=== PATIENT | female | born 1985 | race Caucasian/White ===

== ENCOUNTER → 2016-09-28 | Outpatient (REF) | payer BC ==
[2016-09-28 13:05] LABS: ALBUMIN 4.5 GM/DL (3.2-5.2); ALBUMIN/GLOBULIN RATIO 1.41 (1.00-1.93); ALKALINE PHOSPHATASE 67 U/L (45-117); ALT/SGPT 20 U/L (12-78); ANION GAP 8 MEQ/L (8-16); AST/SGOT 16 U/L (15-37); BILIRUBIN,TOTAL 0.4 MG/DL (0.2-1.0); BLOOD UREA NITROGEN 9 MG/DL (7-18); CALCIUM LEVEL 9.5 MG/DL (8.5-10.1); CARBON DIOXIDE LEVEL 29 MEQ/L (21-32); CHLORIDE LEVEL 103 MEQ/L (98-107); CHOLESTEROL LEVEL 205 MG/DL (<200); CREATININE FOR GFR 0.74 MG/DL (0.55-1.02); GLOMERULAR FILTRATION RATE > 60.0 (>60); GLUCOSE, FASTING 82 MG/DL (70-105); POTASSIUM SERUM 4.7 MEQ/L (3.5-5.1); SODIUM LEVEL 140 MEQ/L (136-145); TOTAL PROTEIN 7.7 GM/DL (6.4-8.2); TRIGLYCERIDES LEVEL 117 MG/DL (<150)
[2016-09-28 13:19] LABS: MEAN CORPUSCULAR HEMOGLOBIN 29.4 pg (27.0-33.0); MEAN CORPUSCULAR HGB CONC 32.7 g/dl (32.0-36.5); RED CELL DISTRIBUTION WIDTH 12.1 % (11.5-14.5); WHITE BLOOD COUNT 9.9 K/mm3 (4.0-10.0)
== END ==
LOC: M SFHCLERA 09:15
PROVIDERS: ATTEND Physician Assistant
DX: M54.6 Pain in thoracic spine (principal); Z13.220 Encounter for screening for lipoid disorders; F34.1 Dysthymic disorder

== ENCOUNTER → 2016-12-27 | Outpatient (REF) | payer BC | LOC: M SFHCLERA 11:33 | PROVIDERS: ATTEND Physician Assistant | DX: J02.9 Acute pharyngitis, unspecified (principal) ==

== ENCOUNTER → 2017-01-16 | Outpatient (REF) | payer BC | LOC: M SFHCLERA 09:49 | PROVIDERS: ATTEND Nurse Practitioner Family | DX: R30.0 Dysuria (principal) ==

== ENCOUNTER → 2017-07-09 | Outpatient (CLI) | payer BC ==
[2017-07-09 13:58] LABS: BASO % 0.3 % (0.0-1.0); EOS # 0.2 10^3/uL (0.0-0.50); EOS % 1.4 % (0.0-3.0); HEMATOCRIT 43.8 % (36.0-47.0); HEMOGLOBIN 14.5 g/dl (12.0-16.0); IMMATURE GRANULOCYTE # 0.1 10^3/uL (0-0); IMMATURE GRANULOCYTE % 0.6 % (0-0); LYMPH # 2.3 10^3/uL (1.5-4.5); LYMPH % 17.3 % (24.0-44.0); MEAN CORPUSCULAR HEMOGLOBIN 29.8 pg (27.0-33.0); MEAN CORPUSCULAR HGB CONC 33.1 g/dl (32.0-36.5); MEAN CORPUSCULAR VOLUME 90.1 fl (80.0-96.0); MONO # 0.9 10^3/uL (0.0-0.8); MONO % 6.7 % (0.0-5.0); NEUTROPHILS # 9.9 10^3/uL (1.8-7.7); NEUTROPHILS % 73.7 % (36.0-66.0); PLATELET COUNT, AUTOMATED 310 10^3/uL (150-450); RED BLOOD COUNT 4.86 10^6/uL (4.00-5.40); RED CELL DISTRIBUTION WIDTH 12.6 % (11.5-14.5); WHITE BLOOD COUNT 13.4 10^3/uL (4.0-10.0)
[2017-07-09 14:33] LABS: RUBELLA IgG QUALITATIVE IMMUNE (IMMUNE)
[2017-07-09 14:34] LABS: HBsAg Prenatal NEGATIVE (NEGATIVE)
[2017-07-09 15:01] LABS: HEPATITIS C VIRUS ABY INDEX 0.1 INDEX (<0.8)
[2017-07-09 15:02] LABS: HIV 1&2 SCREEN CENTAUR NEGATIVE (NEGATIVE)
[2017-07-09 15:35] LABS: CHLAMYDIA DNA AMPLIFICATION NEGATIVE (NEGATIVE); GC DNA AMPLIFICATION NEGATIVE (NEGATIVE)
[2017-07-11 00:07] LABS: T PALLIDUM ANTIBODIES Negative (Negative)
== END ==
LOC: M SMT 10:01
DX: Z34.81 Encounter for supervision of other normal pregnancy, first trimester (principal); Z3A.09 9 weeks gestation of pregnancy
CPT/HCPCS: 86762

== ENCOUNTER → 2017-08-01 | Outpatient (CLI) | payer BC ==
[2017-08-03 00:06] LABS: T PALLIDUM ANTIBODIES Negative (Negative)
== END ==
LOC: M SMT 09:32
DX: Z34.81 Encounter for supervision of other normal pregnancy, first trimester (principal); Z3A.00 Weeks of gestation of pregnancy not specified
CPT/HCPCS: 36415

== ENCOUNTER → 2017-09-07 | Outpatient (CLI) | payer BC | LOC: M SMT 11:02 | DX: Z31.438 Encounter for other genetic testing of female for procreative management (principal) | CPT/HCPCS: 36415 ==

== ENCOUNTER → 2017-09-07 | Outpatient (CLI) | payer BC | LOC: M RAD 10:05 | DX: Z34.82 Encounter for supervision of other normal pregnancy, second trimester (principal) ==

== ENCOUNTER → 2017-09-24 | Outpatient (CLI) | payer BC | LOC: M RAD 17:36 | DX: Z34.82 Encounter for supervision of other normal pregnancy, second trimester (principal); Z3A.21 21 weeks gestation of pregnancy ==

== ENCOUNTER → 2017-10-15 | Outpatient (CLI) | payer BC ==
[2017-10-15 13:44] LABS: HEMATOCRIT 39.8 % (36.0-47.0); HEMOGLOBIN 13.3 g/dl (12.0-15.5); MEAN CORPUSCULAR HEMOGLOBIN 30.6 pg (27.0-33.0); MEAN CORPUSCULAR HGB CONC 33.4 g/dl (32.0-36.5); MEAN CORPUSCULAR VOLUME 91.7 fl (80.0-96.0); PLATELET COUNT, AUTOMATED 207 10^3/uL (150-450); RED BLOOD COUNT 4.34 10^6/uL (4.00-5.40); RED CELL DISTRIBUTION WIDTH 13.1 % (11.5-14.5); WHITE BLOOD COUNT 14.1 10^3/uL (4.0-10.0)
[2017-10-15 14:30] LABS: GLUCOSE CHALLENGE TEST 1 HOUR 114 MG/DL (LESS THAN 140)
== END ==
LOC: M SMT 08:30
DX: Z34.82 Encounter for supervision of other normal pregnancy, second trimester (principal); Z3A.00 Weeks of gestation of pregnancy not specified

== ENCOUNTER → 2018-01-08 | Outpatient (REF) | payer BC | LOC: M LAB REF 16:57 | DX: Z36.85 Encounter for antenatal screening for Streptococcus B (principal); Z3A.00 Weeks of gestation of pregnancy not specified | CPT/HCPCS: 87081 ==

== ENCOUNTER 2018-01-28 01:50 | Inpatient (IN) | payer BC ==
[2018-01-28] MEDS ORDERED: OXYTOCIN 30 UNITS IN 0.9% NaCl 500ML IV BAG (J2590) As Ordered ×3 (02:39→08:54)
[2018-01-28 02:45] LABS: HEMATOCRIT 43.1 % (36.0-47.0); HEMOGLOBIN 14.7 g/dl (12.0-15.5); MEAN CORPUSCULAR HEMOGLOBIN 31.1 pg (27.0-33.0); MEAN CORPUSCULAR HGB CONC 34.1 g/dl (32.0-36.5); MEAN CORPUSCULAR VOLUME 91.3 fl (80.0-96.0); PLATELET COUNT, AUTOMATED 158 10^3/uL (150-450); RED BLOOD COUNT 4.72 10^6/uL (4.00-5.40); RED CELL DISTRIBUTION WIDTH 13.7 % (11.5-14.5); WHITE BLOOD COUNT 12.8 10^3/uL (4.0-10.0)
[2018-01-28] MEDS ORDERED: FENTANYL 2MCG/ML ROPIVACAINE 0.2% IN 0.9% NACL 200ML IVBAG As Ordered (03:38)
[2018-01-28] MEDS ORDERED: ONDANSETRON 4MG/2ML VIAL (J2405) IV ×4 (03:58→09:15)
[2018-01-28] MEDS ORDERED: REFRIGERATOR IV KEYS XX (03:58)
[2018-01-28] MEDS ORDERED: FENTANYL/ROPIVACAINE/NACL BAG 200 ML EPIDURAL (03:58)
[2018-01-28] MEDS ORDERED: NALOXONE INJ 0.4 MG/1 ML VIAL (J2310) IV ×3 (03:58→08:31)
[2018-01-28] MEDS ORDERED: EPIDURAL/PCA KEYS XX (03:58)
[2018-01-28] MEDS ORDERED: ePHEDrine SULFATE 25 MG/5 ML(5MG/ML) SYRINGE IV (03:58)
[2018-01-28] MEDS ORDERED: EPIDURAL COMMENT XX (03:58)
[2018-01-28] MEDS ORDERED: diphenhydrAMINE INJ 50MG/ML VIAL (J1200) IV (03:58)
[2018-01-28] MEDS ORDERED: LACTATED RINGER'S 1000 ML IV (03:58)
[2018-01-28] MEDS: LR 1,000 ML IV ×4 (04:32→20:02)
[2018-01-28] MEDS ORDERED: BICITRA 30ML SOLN UDC As Ordered (07:48)
[2018-01-28] MEDS ORDERED: ceFAZolin 2 GM/D5W 50 ML IV BAG (J0690 PER 500MG) As Ordered (07:48)
[2018-01-28] MEDS: BICITRA 30ML SOLN UDC PO (07:54)
[2018-01-28] MEDS ORDERED: dexameTHASONE 4 MG/ML 1ML VIAL (J1100) As Ordered (08:06)
[2018-01-28] MEDS ORDERED: KETOROLAC 60 MG/2 ML VIAL (J1885) As Ordered (08:06)
[2018-01-28] MEDS ORDERED: MORPHINE PRES-FREE INJ 10 MG/10 ML VIAL (J2274) As Ordered (08:06)
[2018-01-28] MEDS ORDERED: ONDANSETRON 4MG/2ML VIAL (J2405) As Ordered (08:06)
[2018-01-28] MEDS ORDERED: OXYTOCIN INJ 10 UNITS/ML VIAL (J2590) As Ordered (08:06)
[2018-01-28 08:26] LABS: CORD GAS ABE A -3.8; CORD GAS HCO3 A 25.6 MEQ/L; CORD GAS O2 SAT A 32.4 %; CORD GAS PCO2 A 63.9 mmHg; CORD GAS PO2 A 19.5 mmHg; CORD GAS SBC A 19.6 MEQ/L; CORD GAS TCO2 A 27.5 MEQ/L
[2018-01-28 08:27] LABS: CORD GAS ABE V -4.9; CORD GAS HCO3 V 22.6 MEQ/L; CORD GAS O2 SAT V 62.4 %; CORD GAS PCO2 V 50.2 mmHg; CORD GAS PH V 7.271 UNITS; CORD GAS SBC V 19.6 MEQ/L; CORD GAS TCO2 V 24.1 MEQ/L
[2018-01-28] MEDS ORDERED: NALBUPHINE HCL 10 MG/ML AMP (J2300) IV (08:31)
[2018-01-28] MEDS ORDERED: METOCLOPRAMIDE INJ 10MG/2ML VIAL (J2765) IV (08:31)
[2018-01-28] MEDS ORDERED: ePHEDrine SULFATE 25 MG/5 ML(5MG/ML) SYRINGE As Ordered (08:32)
[2018-01-28] MEDS ORDERED: LIDOCAINE PRES-FREE 2% 10ML AMP As Ordered ×2 (08:35)
[2018-01-28] MEDS ORDERED: MEASLES,MUMPS,RUBELLA VACCINE INJ (MMR-II) (90707) SC (08:45)
[2018-01-28] MEDS ORDERED: DOCUSATE SODIUM 100 MG CAP PO (08:45)
[2018-01-28] MEDS ORDERED: RHOGAM 300 MCG (1500 IU) INJ (J2790) IM (08:45)
[2018-01-28] MEDS: PRENATAL VITAMINS CHEWABLE TABLET PO (09:00)
[2018-01-28] MEDS ORDERED: NORCO, ANEXSIA 5/325MG TABLET (HYDROcodone/ACETAMINOPHEN) PO ×2 (09:15→12:15)
[2018-01-28] MEDS ORDERED: fentaNYL 100 MCG/2 ML INJECTION (J3010) As Ordered (09:17)
[2018-01-28] MEDS: fentaNYL 100 MCG/2 ML INJECTION (J3010) IV ×4 (09:19→09:41)
[2018-01-28 11:57] LABS: BEDSIDE GLUCOSE 112 MG/DL (70-105)
[2018-01-28] MEDS: KETOROLAC 30 MG/ML VIAL (J1885) IV (13:43)
[2018-01-28 15:13] LABS: HEMATOCRIT 28.7 % (36.0-47.0); HEMOGLOBIN 9.8 g/dl (12.0-15.5); MEAN CORPUSCULAR HEMOGLOBIN 31.6 pg (27.0-33.0); MEAN CORPUSCULAR HGB CONC 34.1 g/dl (32.0-36.5); MEAN CORPUSCULAR VOLUME 92.6 fl (80.0-96.0); PLATELET COUNT, AUTOMATED 136 10^3/uL (150-450); WHITE BLOOD COUNT 24.4 10^3/uL (4.0-10.0)
[2018-01-28 15:24] LABS: POSITIVE MORPH POS FLAG
[2018-01-28 18:19] LABS: HEMATOCRIT 31.2 % (36.0-47.0); HEMOGLOBIN 9.9 g/dl (12.0-15.5); MEAN CORPUSCULAR HEMOGLOBIN 31.5 pg (27.0-33.0); MEAN CORPUSCULAR HGB CONC 31.7 g/dl (32.0-36.5); MEAN CORPUSCULAR VOLUME 99.4 fl (80.0-96.0); PLATELET COUNT, AUTOMATED 158 10^3/uL (150-450); RED BLOOD COUNT 3.14 10^6/uL (4.00-5.40); RED CELL DISTRIBUTION WIDTH 13.8 % (11.5-14.5); WHITE BLOOD COUNT 28.3 10^3/uL (4.0-10.0)
[2018-01-28] MEDS: IBUPROFEN 800 MG TAB PO (22:03)
[2018-01-28] MEDS: LR 500 ML IV (22:27)
[2018-01-29] MEDS: IBUPROFEN 800 MG TAB PO ×3 (05:48→21:42)
[2018-01-29] MEDS: LR 1,000 ML IV ×2 (05:49→16:36)
[2018-01-29 06:39] LABS: HEMATOCRIT 20.3 % (36.0-47.0); MEAN CORPUSCULAR HEMOGLOBIN 32.1 pg (27.0-33.0); MEAN CORPUSCULAR VOLUME 94.4 fl (80.0-96.0); PLATELET COUNT, AUTOMATED 109 10^3/uL (150-450); RED BLOOD COUNT 2.15 10^6/uL (4.00-5.40); RED CELL DISTRIBUTION WIDTH 14.2 % (11.5-14.5); WHITE BLOOD COUNT 19.9 10^3/uL (4.0-10.0)
[2018-01-29 06:42] LABS: HEMOGLOBIN 6.9 g/dl (12.0-15.5)
[2018-01-29] MEDS: PRENATAL VITAMINS CHEWABLE TABLET PO (08:38)
[2018-01-29] MEDS: NS 1,000 ML IV (08:38)
[2018-01-29 09:49] LABS: IMMEDIATE SPIN CROSSMATCH 1 2
[2018-01-29 15:32] LABS: HEMATOCRIT 27.2 % (36.0-47.0); HEMOGLOBIN 9.2 g/dl (12.0-15.5); MEAN CORPUSCULAR HEMOGLOBIN 32.3 pg (27.0-33.0); MEAN CORPUSCULAR HGB CONC 33.8 g/dl (32.0-36.5); MEAN CORPUSCULAR VOLUME 95.4 fl (80.0-96.0); PLATELET COUNT, AUTOMATED 106 10^3/uL (150-450); RED BLOOD COUNT 2.85 10^6/uL (4.00-5.40); RED CELL DISTRIBUTION WIDTH 14.1 % (11.5-14.5); WHITE BLOOD COUNT 17.2 10^3/uL (4.0-10.0)
[2018-01-30 00:14] LABS: T PALLIDUM ANTIBODIES Negative (Negative)
[2018-01-30] MEDS: LR 1,000 ML IV ×2 (00:36→08:36)
[2018-01-30] MEDS: IBUPROFEN 800 MG TAB PO ×2 (06:15→14:19)
[2018-01-30] MEDS: NS 1,000 ML IV (06:53)
[2018-01-30] MEDS: PRENATAL VITAMINS CHEWABLE TABLET PO (07:45)
== END 2018-01-30 14:40 | disposition home or self-care (01) | DRG 540 ==
LOC: M LDO 01:50 → M LDI 02:07 → M OBS 10:12
PROVIDERS: Obstetrics & Gynecology
PROC: 10D00Z1 Extraction of Products of Conception, Low, Open Approach (ICD-10-PCS; principal; 2018-01-28 07:59)
PROC: 30233N1 Transfusion of Nonautologous Red Blood Cells into Peripheral Vein, Percutaneous Approach (ICD-10-PCS; 2018-01-28 07:59)
DX: O62.0 Primary inadequate contractions (principal); D64.9 Anemia, unspecified; Z3A.38 38 weeks gestation of pregnancy; O77.0 Labor and delivery complicated by meconium in amniotic fluid; O76 Abnormality in fetal heart rate and rhythm complicating labor and delivery; Z37.0 Single live birth; O99.03 Anemia complicating the puerperium

== ENCOUNTER 2018-02-23 15:18 | Emergency (ER) | payer BC, MEDICAID | END 2018-02-23 16:38 | disposition home or self-care (01) | LOC: M ED 15:18 | DX: O90.89 Other complications of the puerperium, not elsewhere classified (principal); O90.0 Disruption of cesarean delivery wound; O90.2 Hematoma of obstetric wound | CPT/HCPCS: 99283 ==

== ENCOUNTER 2018-02-24 13:34 | Emergency (ER) | payer BC, MEDICAID | END 2018-02-24 16:36 | disposition home or self-care (01) | LOC: M ED 13:34 | DX: O90.0 Disruption of cesarean delivery wound (principal) | CPT/HCPCS: 99282 ==

== ENCOUNTER → 2019-04-08 | Outpatient (REF) | payer OTHER ==
[~2019-04-08] MED LIST: BENA25CA4 PO; MOTR200T44 PO; NORC1TAB7 PO; PRENTAB9 PO
[2019-04-11 14:29] LABS: HPV HYBRID CAPTURE II Negative (Negative)
== END ==
LOC: M LAB REF 08:17
PROVIDERS: ATTEND Obstetrics & Gynecology
DX: Z12.4 Encounter for screening for malignant neoplasm of cervix (principal)

== ENCOUNTER → 2019-05-12 | Outpatient (CLI) | payer OTHER ==
--- NOTE | 2019-05-12 10:10 | REPMRS ---
Patient History Patient had first child at age 32. Family history of breast cancer in paternal aunt. Digital Mammo Screening Bilat: May 12, 2019 - Exam #: [id number] Bilateral CC and MLO view(s) were taken. Technologist: Diana Byrne Technologist FINDINGS: The breast tissue is heterogeneously dense. This may lower the sensitivity of mammography. There is no evidence of dominant mass, architectural distortion, or grouped microcalcification typical of malignancy. 3-D tomosynthesis shows no additional findings. Assessment: BI-RADS/ACR category 1 mammogram. Negative Mammogram. Recommendation Breast MRI of both breasts in 6 months. Routine screening mammogram of both breasts in 1 year (for women over age 40). This patient's Lifetime Breast Cancer RIsk is estimated at 21.2 %. Annual screening Breast MRI scanniing is recommended for patient's whose lifetime risk assessment is over 20%. This mammogram was interpreted with the aid of an FDA-approved computer-aided dectection system. Electronically Signed By: William Evans MD 05/12/19 2220
== END ==
LOC: M RAD 09:21
PROVIDERS: ATTEND Obstetrics & Gynecology
DX: Z15.01 Genetic susceptibility to malignant neoplasm of breast (principal)

== ENCOUNTER → 2020-03-04 | Outpatient (CLI) | payer OTHER ==
[~2020-03-04] MED LIST changes: +PROHANCE 279.3MG/ML 15ML VIAL As Ordered ONE
--- NOTE | 2020-03-30 14:17 | REP ---
MRI BILATERAL BREASTS WITH AND WITHOUT CONTRAST HISTORY: Family history of breast cancer. COMPARISON: 05/12/2019. TECHNIQUE: MRI bilateral breasts performed with and without contrast, utilizing sequences in the axial, coronal, and sagittal planes prior to and following the intravenous administration of 14 mL gadolinium. Images are evaluated on the [employer] software including dynamic post IV gadolinium, axial T1 fat sat images, subtraction images, color overlay images, CAD imaging, and MIP reconstruction images. FINDINGS: Moderate fibroglandular tissue is seen diffusely bilaterally. There is [id number] background parenchymal enhancement bilaterally. No significant cystic change is seen in either breast. I do not see evidence of axillary adenopathy bilaterally. Normal appearing nonenlarged axillary lymph nodes are present. No suspicious enhancing mass or morphologic abnormality is seen bilaterally. IMPRESSION: BI-RADS Category 1 negative bilateral breast MRI. No suspicious enhancing mass or morphologic abnormality. Yearly supplemental screening MRI of the breasts is recommended for patients with an elevated lifetime risk of breast cancer 20% or greater. [facility]
== END ==
LOC: M RAD 07:45
PROVIDERS: ATTEND Obstetrics & Gynecology
DX: Z12.39 Encounter for other screening for malignant neoplasm of breast (principal); Z80.3 Family history of malignant neoplasm of breast
CPT/HCPCS: A9576; C8908

== ENCOUNTER → 2020-07-22 | Outpatient (CLI) | payer OTHER ==
[~2020-07-22] MED LIST changes: -PROHANCE 279.3MG/ML 15ML VIAL As Ordered ONE
== END ==
LOC: M CLY 11:59
PROVIDERS: ATTEND Family Medicine
DX: M79.89 Other specified soft tissue disorders (principal)

== ENCOUNTER → 2020-07-22 | Outpatient (CLI) | payer OTHER ==
--- NOTE | 2020-07-23 05:47 | REP ---
INDICATION: SWELLING OF TOE; LEFT 4TH TOE PAIN AND SWELLING COMPARISON: None. TECHNIQUE: AP, lateral, bilateral oblique views left foot. FINDINGS: The osseous structures and joint spaces are intact and normal. There is no evidence for acute fracture or dislocation. Soft tissue swelling surrounding the distal aspect of the 4th toe is suggested without subcutaneous emphysema or foreign body.. IMPRESSION: Soft tissue swelling surrounding the 4th toe is suggested. No acute fracture or dislocation. <Electronically signed by Alhaji Carey > 07/23/20 0529
== END ==
LOC: M CLY 14:36
PROVIDERS: ATTEND Family Medicine
DX: M79.89 Other specified soft tissue disorders (principal)

== ENCOUNTER → 2020-12-22 | Outpatient (REF) | payer OTHER | LOC: M SFHCCLAY 13:50 | PROVIDERS: ATTEND Family Medicine | DX: N89.8 Other specified noninflammatory disorders of vagina (principal) ==

== ENCOUNTER → 2022-03-24 | Outpatient (REF) | payer OTHER ==
[2022-03-24 16:30] LABS: HEMATOCRIT 42.1 % (36.0-47.0); HEMOGLOBIN 13.9 g/dl (12.0-15.5); MEAN CORPUSCULAR HEMOGLOBIN 30.3 pg (27.0-33.0); MEAN CORPUSCULAR VOLUME 91.9 fl (80.0-96.0); PLATELET COUNT, AUTOMATED 199 10^3/uL (150-450); RED BLOOD COUNT 4.58 10^6/uL (4.00-5.40); WHITE BLOOD COUNT 11.1 10^3/uL (4.0-10.0)
[2022-03-24 16:53] LABS: HEMOGLOBIN A1c 5.2 %
[2022-03-24 17:12] LABS: ALBUMIN 4.2 GM/DL (3.2-5.2); ALT/SGPT 18 U/L (12-78); BILIRUBIN,TOTAL 0.3 MG/DL (0.2-1.0); BLOOD UREA NITROGEN 5 MG/DL (7-18); CALCIUM LEVEL 9.2 MG/DL (8.5-10.1); CARBON DIOXIDE LEVEL 27 MEQ/L (21-32); CHLORIDE LEVEL 105 MEQ/L (98-107); CHOLESTEROL LEVEL 154 MG/DL (<200); CHOLESTEROL RISK RATIO 2.566 (<5); CREATININE FOR GFR 0.75 MG/DL (0.55-1.30); FREE T4 0.84 NG/DL (0.76-1.46); GLOMERULAR FILTRATION RATE > 60.0 (>60); GLUCOSE, FASTING 81 MG/DL (70-100); HDL CHOLESTEROL 60 MG/DL (>40); LDL CHOLESTEROL 70 MG/DL (<100); NON-HDL-C 94 MG/DL; POTASSIUM SERUM 4.1 MEQ/L (3.5-5.1); SODIUM LEVEL 138 MEQ/L (136-145); THYROID STIMULATING HORMONE 0.755 uIU/ML (0.358-3.740); TOTAL PROTEIN 7.1 GM/DL (6.4-8.2); TRIGLYCERIDES LEVEL 122 MG/DL (<150)
== END ==
LOC: M SFHCCLAY 11:28
PROVIDERS: ATTEND Nurse Practitioner Family
DX: F41.1 Generalized anxiety disorder (principal); Z13.220 Encounter for screening for lipoid disorders; Z83.3 Family history of diabetes mellitus

== ENCOUNTER → 2022-05-05 | Outpatient (REF) | payer OTHER | LOC: M SFHCWAGY 17:17 | PROVIDERS: ATTEND Obstetrics & Gynecology | DX: Z01.419 Encounter for gynecological examination (general) (routine) without abnormal findings (principal); Z12.4 Encounter for screening for malignant neoplasm of cervix ==

== ENCOUNTER → 2023-10-04 | Outpatient (CLI) | payer OTHER ==
[2023-10-04 10:31] LABS: ALBUMIN 4.1 G/DL (3.2-5.2); ALKALINE PHOSPHATASE 73 U/L (46-116); ALT/SGPT 12 U/L (7.0-40); AST/SGOT < 8 U/L (<34); BILIRUBIN,TOTAL 0.4 MG/DL (0.3-1.2); BLOOD UREA NITROGEN 9 MG/DL (9-23); CALCIUM LEVEL 9.5 MG/DL (8.5-10.1); CARBON DIOXIDE LEVEL 32 MMOL/L (20-31); CHLORIDE LEVEL 104 MMOL/L (98-107); CHOLESTEROL LEVEL 160 MG/DL (<200); CHOLESTEROL RISK RATIO 2.91 (<5); CREATININE FOR GFR 0.75 MG/DL (0.55-1.30); GLOMERULAR FILTRATION RATE > 60.0 (>60); GLUCOSE, FASTING 82 MG/DL (60-100); HDL CHOLESTEROL 54.9 MG/DL (>40); LDL CHOLESTEROL 70.3 MG/DL (<100); NON-HDL-C 105.1 MG/DL; POTASSIUM SERUM 4.1 MMOL/L (3.5-5.1); SODIUM LEVEL 142 MMOL/L (136-145); TOTAL PROTEIN 6.7 G/DL (5.7-8.2); TRIGLYCERIDES LEVEL 174 MG/DL (<150)
[2023-10-04 10:41] LABS: HEMOGLOBIN A1c 5.2 % (4.0-6.0)
== END ==
LOC: M LAB 08:52
PROVIDERS: ATTEND Nurse Practitioner Family
DX: Z13.220 Encounter for screening for lipoid disorders (principal); R03.0 Elevated blood-pressure reading, without diagnosis of hypertension; Z83.3 Family history of diabetes mellitus

== ENCOUNTER → 2024-01-17 | Outpatient (CLI) | payer OTHER | LOC: M CLY 10:43 | PROVIDERS: ATTEND Nurse Practitioner Family | DX: M54.41 Lumbago with sciatica, right side (principal); M54.42 Lumbago with sciatica, left side; M47.16 Other spondylosis with myelopathy, lumbar region ==

== ENCOUNTER → 2024-01-17 | Outpatient (CLI) | payer OTHER | LOC: M WHC 12:35 | PROVIDERS: ATTEND Nurse Practitioner Family | DX: Z12.31 Encounter for screening mammogram for malignant neoplasm of breast (principal) ==

== ENCOUNTER → 2024-03-04 | Outpatient (REF) | payer OTHER ==
[2024-03-04 17:12] LABS: URINE PREG TEST NEGATIVE (NEGATIVE)
== END ==
LOC: M SFHCCLAY 13:18
PROVIDERS: ATTEND Nurse Practitioner Family
DX: Z30.09 Encounter for other general counseling and advice on contraception (principal)

== ENCOUNTER 2024-03-25 11:23 | Emergency (ER) | payer OTHER ==
[~2024-03-25] VITALS: Ht 162.6 cm; Wt 69.5 kg
[2024-03-25] MEDS ORDERED: TRI-TAB16 (11:36)
[2024-03-25] MEDS ORDERED: METH36TA6 (11:36)
[2024-03-25] MEDS ORDERED: LEXA1TAB (11:36)
[2024-03-25 12:35] LABS: BASO % 0.5 % (0.0-1.0); EOS # 0.1 10^3/uL (0.0-0.5); EOS % 0.8 % (0.0-3.0); HEMATOCRIT 41.7 % (36.0-47.0); HEMOGLOBIN 14.4 g/dl (12.0-15.5); LYMPH # 1.1 10^3/uL (1.5-5.0); LYMPH % 13.3 % (24.0-44.0); MEAN CORPUSCULAR HEMOGLOBIN 31.1 pg (27.0-33.0); MEAN CORPUSCULAR HGB CONC 34.5 g/dl (32.0-36.5); MEAN CORPUSCULAR VOLUME 90.1 fl (80.0-96.0); MONO # 0.4 10^3/uL (0.0-0.8); NEUTROPHILS # 6.8 10^3/uL (1.5-8.5); NEUTROPHILS % 80.2 % (36.0-66.0); PLATELET COUNT, AUTOMATED 277 10^3/uL (150-450); RED BLOOD COUNT 4.63 10^6/uL (4.00-5.40); WHITE BLOOD COUNT 8.5 10^3/uL (4.0-10.0)
[2024-03-25 13:03] LABS: HCG, SERUM QUALITATIVE NEGATIVE (NEGATIVE)
[2024-03-25 13:04] LABS: BLOOD UREA NITROGEN 8 MG/DL (9-23); CALCIUM LEVEL 9.2 MG/DL (8.5-10.1); CARBON DIOXIDE LEVEL 28 MMOL/L (20-31); CHLORIDE LEVEL 107 MMOL/L (98-107); CREATININE FOR GFR 0.72 MG/DL (0.55-1.30); GLOMERULAR FILTRATION RATE > 60.0 (>60); GLUCOSE, FASTING 139 MG/DL (60-100); POTASSIUM SERUM 3.7 MMOL/L (3.5-5.1); SODIUM LEVEL 138 MMOL/L (136-145)
[2024-03-25 13:07] LABS: THYROID STIMULATING HORMONE 1.437 uIU/ML (0.55-4.78)
[2024-03-25 14:11] VITALS: TEMP 97.8
[2024-03-25] MEDS ORDERED: IBUP-1022 PO (17:17)
[2024-03-25 17:24] VITALS: BP 123/77; O2SAT 99
== END 2024-03-25 17:26 | disposition home or self-care (01) ==
LOC: M ED 11:23
DX: S93.402A Sprain of unspecified ligament of left ankle, initial encounter (principal); R55 Syncope and collapse; X50.0XXA Overexertion from strenuous movement or load, initial encounter; Y92.9 Unspecified place or not applicable; Y93.89 Activity, other specified; Y99.0 Civilian activity done for income or pay; Z79.1 Long term (current) use of non-steroidal anti-inflammatories (NSAID); Z79.899 Other long term (current) drug therapy

== ENCOUNTER → 2024-04-08 | Outpatient (REF) | payer OTHER ==
[~2024-04-08] MED LIST changes: +IBUP-1022 PO; +LEXA1TAB; +METH36TA6; +TRI-TAB16
== END ==
LOC: M SFHCCLAY 17:51
PROVIDERS: ATTEND Nurse Practitioner Family
DX: Z12.4 Encounter for screening for malignant neoplasm of cervix (principal)
CPT/HCPCS: 87624; G0123

== ENCOUNTER → 2025-06-18 | Outpatient (REF) | payer OTHER ==
[~2025-06-18] MED LIST changes: -IBUP-1022 PO; +IBUP600T42 PO
[2025-06-18 12:34] LABS: HCG, SERUM QUALITATIVE POSITIVE (NEGATIVE)
[2025-06-18 12:35] LABS: HCG, SERUM QUANTITATIVE 2080.0 MIU/ML (<4.2)
== END ==
LOC: M SFHCCLAY 08:29
PROVIDERS: ATTEND Nurse Practitioner Family
DX: Z32.01 Encounter for pregnancy test, result positive (principal)